=== PATIENT | female | born 1975 | race Caucasian/White ===

== ENCOUNTER → 2017-02-23 | Outpatient (CLI) | payer OTHER | LOC: RAD 09:16 | DX: R92.8 Other abnormal and inconclusive findings on diagnostic imaging of breast (principal); N60.01 Solitary cyst of right breast ==

== ENCOUNTER → 2017-03-04 | Outpatient (CLI) | payer OTHER ==
--- NOTE | 2017-03-06 14:48 | RADIOLOGY REPORT PS360 ---
DIG MAMM-DX SETH W/CAD, US BREAST-RT COMPLETE W/AXILLA, US BREAST-LT COMPLETE W/AXILLA COMPARISON: 07/02/2016 mammogram, 08/02/1969 mammogram, 08/06/2016 breast ultrasound INDICATION: Follow-up abnormal mammogram and ultrasound ORDERING PHYSICIAN: Jitendra Newton MD PATIENT AGE: 41 years TECHNIQUE: Standard images performed along with magnification views. FINDINGS: There is very dense fibroglandular tissue bilaterally decrease in sensitivity of mammography. Correlation with physical exam is therefore strongly recommended. Negative mammogram and negative ultrasound does not exclude the possibility of malignancy in this patient with very dense breast tissue. Any palpable nodule should be managed on a clinical basis. No discrete mass. Multiple benign-appearing calcifications bilaterally as before some of which are likely related to milk of calcium. No new suspicious clusters of calcification evident. Clustered calcifications in the deep axillary region on the left do not appear significantly changed Right breast ultrasound: 3 mm hypoechoic nodule at 12:00, 3 mm hypoechoic nodule at 7:00, 3 mm cyst at 10:00, 6 mm hypoechoic nodule at 10:00 unchanged, 4 mm cyst at 11:00 Left breast ultrasound: 4 mm cyst at 2:00, 4 mm hypoechoic nodule at 3:00 probably related to cyst, 3 mm cyst at 10:00, 2 mm cyst at 9:00, 4 mm cyst in the retroareolar region IMPRESSION: Overall no change in the multiple benign-appearing findings with benign-appearing calcifications and probably benign hypoechoic nodules BI-RADS CATEGORY: 3_Probably Benign-Short Term F/U RECOMMENDED FOLLOWUP: Continued 6 mammographic and sonographic follow-up. Correlation with physical exam is strongly recommended. Negative mammogram and negative ultrasound does not exclude the possibility of malignancy in this patient with very dense breast tissue. Any palpable nodule should be managed on a clinical basis. (A letter has been sent to the patient regarding results of the study.)
== END ==
LOC: RAD 03-02 13:00
DX: R92.8 Other abnormal and inconclusive findings on diagnostic imaging of breast (principal)
CPT/HCPCS: G0204